=== PATIENT | male | born 1945 | race Caucasian/White ===

== ENCOUNTER → 2020-07-27 | Outpatient (CLI) | payer MEDICARE, BC ==
[2020-07-27 11:49] LABS: BASOPHILS % (AUTO) 1 % (0-1); EOSINOPHILS % (AUTO) 1 % (1-7); LYMPHOCYTES % (AUTO) 16 % (22-44); MEAN CORPUSCULAR HEMOGLOBIN 31.5 pg (27.5-34.5); MEAN CORPUSCULAR HGB CONC 33.5 g/dL (33.2-36.2); MEAN PLATELET VOLUME 8.5 fL (7.4-10.4); MONOCYTES % (AUTO) 7 % (2-9); NEUTROPHILS % (AUTO) 75 % (42-75); PLATELET COUNT 216 x10^3/uL (130-400)
[2020-07-27 11:51] LABS: MD NO
[2020-07-27 12:00] LABS: ANION GAP 2 mmol/L (5-15); CALCIUM 9.4 mg/dL (8.5-10.1); CHLORIDE 110 mmol/L (98-107); CREATININE 1.29 mg/dL (0.7-1.3)
[2020-07-27 12:02] LABS: INTERNATIONAL NORMALIZED RATIO 0.97 (0.93-1.1); PROTHROMBIN TIME 10.3 Seconds (9.6-11.5)
[2020-07-27 12:50] LABS: MICROSCOPIC NOT IND
== END | disposition home or self-care (01) ==
LOC: STAR 10:11
PROVIDERS: ATTEND Neurological Surgery
DX: Z01.818 Encounter for other preprocedural examination (principal); M50.30 Other cervical disc degeneration, unspecified cervical region
CPT/HCPCS: 36415; 71046; 80048; 81003; 85025; 85610; 85730; 93005

== ENCOUNTER → 2020-07-29 | Outpatient (CLI) | payer MEDICARE, BC | END | disposition home or self-care (01) | LOC: CLISVCS 09:26 | PROVIDERS: ATTEND Anesthesiology | DX: Z20.828 Contact with and (suspected) exposure to other viral communicable diseases (principal) | CPT/HCPCS: 87635 ==

== ENCOUNTER 2020-08-03 06:08 | Observation (INO) | payer MEDICARE, BC ==
[~2020-08-03] VITALS: Ht 174 cm; Wt 69.5 kg
[2020-08-03] MEDS ORDERED: LACTATED RINGERS 1,000 ML IV SCH (06:40)
[2020-08-03] MEDS ORDERED: CHLORHEXIDINE 15 ML UDC MM STA (06:40)
[2020-08-03] MEDS ORDERED: FENTANYL PF 250 MCG/5ML ONE ×2 (06:56→08:21)
[2020-08-03] MEDS ORDERED: EPINEPHRINE 1 MG/ML, 1ML ONE (06:58)
[2020-08-03] MEDS ORDERED: BUPIVACAINE/PF 0.5% ONE (06:58)
[2020-08-03] MEDS ORDERED: BACITRACIN 50,000 UNIT ONE (06:59)
[2020-08-03] MEDS ORDERED: PROPOFOL 10 MG/ML, 20ML ONE (07:08)
[2020-08-03] MEDS ORDERED: NEOSTIGMINE 1 MG/ML, 10ML ONE (07:08)
[2020-08-03] MEDS ORDERED: PROPOFOL 100 ML ONE (07:08)
[2020-08-03] MEDS ORDERED: CEFAZOLIN 1,000 MG ONE (07:08)
[2020-08-03] MEDS ORDERED: GLYCOPYRROLATE 0.2MG/1ML, 5ML ONE (07:08)
[2020-08-03] MEDS ORDERED: ROCURONIUM 10MG/ML,5ML ONE (07:08)
[2020-08-03] MEDS ORDERED: HYDROmorphone 1 MG/ML, 1ML INJ IVPush PRN (08:00)
[2020-08-03] MEDS ORDERED: morphine SULFATE 10 MG/ML, 1ML IVPush PRN (08:00)
[2020-08-03] MEDS ORDERED: LABETALOL 5MG/ML, 20ML IV PRN ×2 (08:00→13:00)
[2020-08-03] MEDS ORDERED: hydrALAzine 20 MG/ML, 1ML IV PRN (08:00)
[2020-08-03] MEDS ORDERED: ACETAMINOPHEN 325 MG TABLET PO PRN (08:00)
[2020-08-03] MEDS ORDERED: ONDANSETRON 2MG/ML, 2ML IVPush PRN (08:00)
[2020-08-03] MEDS ORDERED: MEPERIDINE/PF 25MG/0.5ML IVPush PRN (08:00)
[2020-08-03] MEDS ORDERED: PHENYLEPHRINE 10 MG/ML ONE (08:21)
[2020-08-03] MEDS ORDERED: FENTANYL PF 100 MCG/2ML ONE (10:39)
[2020-08-03] MEDS: FENTANYL PF 100 MCG/2ML IV PRN ×3 (10:41→11:03)
[2020-08-03] MEDS ORDERED: ACETAMINOPHEN 650 MG/20.3 ML UDC ONE (10:58)
[2020-08-03] MEDS ORDERED: OXYcodone 5 MG/5 ML ORAL.SOL UDC ONE (10:58)
[2020-08-03] MEDS ORDERED: OXYcodone 5 MG/5 ML ORAL.SOL UDC PO PRN (11:00)
[2020-08-03] MEDS ORDERED: MAGNESIUM HYDROXIDE 8%, 30ML UDC PO PRN (13:00)
[2020-08-03] MEDS ORDERED: ONDANSETRON 2MG/ML, 2ML IV PRN (13:00)
[2020-08-03] MEDS ORDERED: HYDROcodone/APAP 10/325 MG TABLET PO PRN (13:00)
[2020-08-03] MEDS ORDERED: BISACODYL 10 MG SUPP PR PRN (13:00)
[2020-08-03] MEDS ORDERED: DIPHENHYDRAMINE 25 MG CAPSULE PO PRN (13:00)
[2020-08-03] MEDS ORDERED: DIPHENHYDRAMINE 50 MG/ML, 1ML IVPush PRN (13:00)
[2020-08-03] MEDS ORDERED: OXYcodone IR 5MG TABLET PO PRN (13:00)
[2020-08-03] MEDS ORDERED: TIZANIDINE 2MG TABLET PO PRN (13:00)
[2020-08-03] MEDS ORDERED: PROMETHAZINE 25 MG/ML, 1ML IM PRN (13:00)
[2020-08-03] MEDS ORDERED: DIPHENHYDRAMINE 50 MG/ML, 1ML IM PRN (13:00)
[2020-08-03] MEDS ORDERED: HYDROmorphone 2 MG/ML, 1ML IVPush PRN (13:00)
[2020-08-03 14:20] VITALS: BP 123/67
[2020-08-03] MEDS: NS + 20MEQ KCL 1,000 ML IV SCH ×2 (14:22→23:00)
[2020-08-03] MEDS: CEFAZOLIN PMX 1GM/50ML 50 ML IVPB SCH (15:57)
[2020-08-04] MEDS: CEFAZOLIN PMX 1GM/50ML 50 ML IVPB SCH (00:51)
[2020-08-04 01:02] VITALS: BP 143/71
[2020-08-04 06:01] VITALS: BP 106/57
[2020-08-04 08:23] VITALS: BP 124/76
[2020-08-04] MEDS ORDERED: TIZA2TAB4 PO (08:50)
[2020-08-04] MEDS ORDERED: OXYC-302 PO (08:50)
[2020-08-04] MEDS ORDERED: SENNA/DOCUSATE TABLET PO SCH (09:00)
[2020-08-04] MEDS: NS + 20MEQ KCL 1,000 ML IV SCH (09:00)
== END 2020-08-04 10:33 | disposition home or self-care (01) ==
LOC: OR 06:08 → INTOOBSV 12:08 → 4NE 12:08 → DCLOUNGE 08-04 10:24
PROVIDERS: ADMIT Neurological Surgery; ATTEND Neurological Surgery
DX: M50.121 Cervical disc disorder at C4-C5 level with radiculopathy (principal); M47.22 Other spondylosis with radiculopathy, cervical region; M19.90 Unspecified osteoarthritis, unspecified site; Z79.899 Other long term (current) drug therapy
CPT/HCPCS: 20936; 22551; 63045; 72040; 95938; 95941; 96361; 96365; 96366; 96375; 97161; 97165; C1713; C1776; G0378; J0171; J0690; J2370; J2405; J2704; J2710; J3010; J3480; J7120; S0020